=== PATIENT | male | born 1985 | race Caucasian/White ===

== ENCOUNTER 2022-08-14 17:35 | Emergency (ER) | payer MEDICAID ==
[~2022-08-14] VITALS: Ht 175.3 cm; Wt 130.0 kg
[~2022-08-14 17:35] MED LIST: DOCU-28 PO; HYDR-4353 PO; NAPR-56 PO; ONDA8TAB9 PO; PRED10TA PO; RANI-648 PO
[2022-08-14 17:48] VITALS: BP 136/67
[2022-08-14] MEDS ORDERED: MUPI22OI30 TOP (19:43)
[2022-08-14] MEDS ORDERED: SULF1TAB49 PO (19:43)
[2022-08-14] MEDS ORDERED: sulfamethoxazole/trimethoprim DS (800/160mg) tablet PO ONE (19:45)
== END 2022-08-14 20:06 | disposition home or self-care (01) ==
LOC: ER 17:35
DX: L02.211 Cutaneous abscess of abdominal wall (principal); G89.29 Other chronic pain; M54.9 Dorsalgia, unspecified; Z79.899 Other long term (current) drug therapy
CPT/HCPCS: 99283; A6449

== ENCOUNTER 2024-01-18 22:10 | Emergency (ER) | payer MEDICAID ==
[~2024-01-18] VITALS: Ht 177.8 cm; Wt 125.0 kg
[2024-01-18] MEDS ORDERED: TRIA15CR61 TOP (22:21)
[2024-01-18] MEDS ORDERED: PRED20TA PO (22:21)
[2024-01-18] MEDS ORDERED: DIPH25TA62 PO (22:21)
[2024-01-18] MEDS: dexamethasone sod phosphate 10mg/ml inj IM STA (23:03)
[2024-01-18] MEDS: diphenhydrAMINE 50 mg/ml inj IM ONE (23:04)
[2024-01-19 00:27] VITALS: BP 136/68; PULSE 60; RESP 16; TEMP 98.6; O2SAT 96
== END 2024-01-19 00:29 | disposition home or self-care (01) ==
LOC: ER 22:11
DX: L23.7 Allergic contact dermatitis due to plants, except food (principal)
CPT/HCPCS: 96372; 99284; J1100; J1200

== ENCOUNTER 2024-09-14 15:32 | Emergency (ER) | payer MEDICAID ==
[~2024-09-14] VITALS: Ht 177.8 cm; Wt 134.7 kg
[~2024-09-14 15:32] MED LIST changes: +DIPH25TA62 PO
[2024-09-14 16:19] LABS: BASOPHILS # (AUTO) 0.1 X10'3 (0-0.2); BASOPHILS % (AUTO) 0.4 % (0-1); EOSINOPHILS # (AUTO) 0.8 X10'3 (0-0.9); EOSINOPHILS % (AUTO) 5.1 % (0-6); HEMATOCRIT 48.8 % (42.0-52.0); HEMOGLOBIN 16.9 g/dl (14.0-17.9); LYMPHOCYTES # (AUTO) 5.8 X10'3 (1.1-4.8); LYMPHOCYTES % (AUTO) 37.6 % (21-51); MEAN CORPUSCULAR HEMOGLOBIN 30.8 PG (27.0-31.0); MEAN CORPUSCULAR HGB CONC 34.5 g/dL (33.0-36.5); MEAN CORPUSCULAR VOLUME 89.2 FL (78-98); MEAN PLATELET VOLUME 8.7 FL (7.4-10.4); MONOCYTES # (AUTO) 1.7 X10'3 (0-0.9); MONOCYTES % (AUTO) 11.3 % (2-12); NEUTROPHILS # (AUTO) 7.1 X10'3 (1.8-7.7); NEUTROPHILS % (AUTO) 45.6 % (42-75); PLATELET COUNT 389 X10'3 (140-440); RED BLOOD COUNT 5.48 X10'6 (4.70-6.10); RED CELL DISTRIBUTION WIDTH 13.3 % (11.5-14.5); WHITE BLOOD COUNT 15.5 X10'3 (4.5-11.0)
[2024-09-14 16:40] LABS: ALANINE AMINOTRANSFERASE 179 U/L (12-78); ALBUMIN/GLOBULIN RATIO 0.8 (1.1-1.5); ALKALINE PHOSPHATASE 130 IU/L (46-116); AMYLASE 32 U/L (25-115); ANION GAP 5 (8-16); ASPARTATE AMINO TRANSFERASE 81 U/L (10-37); BILIRUBIN,TOTAL 1.1 MG/DL (0.1-1.0); BLOOD UREA NITROGEN 12 MG/DL (7-18); BUN/CREATININE RATIO 12.9 (10.0-20.0); CALCIUM 9.2 MG/DL (8.5-10.1); CHLORIDE 98 MMOL/L (99-107); CREATININE 0.93 MG/DL (0.60-1.10); GLUCOSE 331 MG/DL (70-104); LIPASE 93 U/L (16-77); SODIUM 136 MMOL/L (135-145); TOTAL CARBON DIOXIDE 32.8 MMOL/L (24-32); TOTAL PROTEIN 8.8 G/DL (6.4-8.2); eCRCL 111 ML/MIN; eGFR > 90 ML/MIN
[2024-09-14 16:42] LABS: POTASSIUM 4.1 MMOL/L (3.5-5.1)
[2024-09-14 17:05] LABS: BILIRUBIN,URINE NEGATIVE (Neg); CLARITY,URINE CLEAR (Clear); COLOR,URINE YELLOW (Yellow); GLUCOSE, URINE >=1000 mg/dl (Neg); KETONES,URINE NEGATIVE (Neg); LEUKOCYTE ESTERASE ,URINE NEGATIVE (Neg); NITRITES, URINE NEGATIVE (Neg); OCCULT BLOOD,URINE SMALL (Neg); PH,URINE 5.5 (4.8-8.0); PROTEIN,URINE NEGATIVE (Neg); UA COLLECTION TYPE NON-SPECIFIED; UROBILINOGEN,URINE 0.2 E.U/dL (0.2-1.0)
[2024-09-14 17:13] LABS: BACTERIA,URINE NONE SEEN /HPF (Neg); RBC,URINE 0-2 /HPF (0-2); WBC,URINE NONE SEEN /HPF (0-4)
[2024-09-14 17:14] LABS: SQUAMOUS EPITHELIAL CELL,UR NONE SEEN /LPF (FEW)
[2024-09-14] MEDS: ketorolac trometh 15mg/ml vial 15 MG/ML ML IM ONE (18:20)
[2024-09-14] MEDS ORDERED: iohexol 300mg/ml 100ml inj. ONE (18:48)
[2024-09-14] MEDS ORDERED: FLO0.4C PO (21:24)
[2024-09-14] MEDS ORDERED: HYDR-3965 PO (21:44)
[2024-09-14 21:56] VITALS: BP 140/80; PULSE 70; RESP 16; TEMP 98.6; O2SAT 99
== END 2024-09-14 21:57 | disposition home or self-care (01) ==
LOC: ER 15:32
DX: R10.10 Upper abdominal pain, unspecified (principal); N20.0 Calculus of kidney
CPT/HCPCS: 36415; 74177; 76700; 80053; 81001; 82150; 83690; 85025; 96372; 99285; J1885; Q9967

== ENCOUNTER 2024-11-02 02:10 | Emergency (ER) | payer MEDICAID ==
[~2024-11-02] VITALS: Ht 177.8 cm; Wt 133.6 kg
[2024-11-02] MEDS: ondansetron/PF 4mg/2ml inj IV ONE ×2 (02:30→02:32)
[2024-11-02] MEDS: morphine 4 MG/ML inj SYRINge IV ONE ×2 (02:30→02:32)
[2024-11-02 02:44] LABS: BASOPHILS # (AUTO) 0.2 X10'3 (0-0.2); EOSINOPHILS # (AUTO) 0.9 X10'3 (0-0.9); MONOCYTES # (AUTO) 2.1 X10'3 (0-0.9)
[2024-11-02 02:46] LABS: BASOPHILS % (AUTO) 1.1 % (0-1); EOSINOPHILS % (AUTO) 5.1 % (0-6); HEMATOCRIT 46.3 % (42.0-52.0); HEMOGLOBIN 15.3 g/dl (14.0-17.9); LYMPHOCYTES # (AUTO) 9.5 X10'3 (1.1-4.8); LYMPHOCYTES % (AUTO) 54.3 % (21-51); MEAN CORPUSCULAR HEMOGLOBIN 29.3 PG (27.0-31.0); MEAN CORPUSCULAR VOLUME 88.7 FL (78-98); MEAN PLATELET VOLUME 9.5 FL (7.4-10.4); MONOCYTES % (AUTO) 12.2 % (2-12); NEUTROPHILS # (AUTO) 4.8 X10'3 (1.8-7.7); NEUTROPHILS % (AUTO) 27.3 % (42-75); PLATELET COUNT 329 X10'3 (140-440); RED BLOOD COUNT 5.22 X10'6 (4.70-6.10); RED CELL DISTRIBUTION WIDTH 13.7 % (11.5-14.5); WHITE BLOOD COUNT 17.5 X10'3 (4.5-11.0)
[2024-11-02] MEDS ORDERED: iohexol 300mg/ml 100ml inj. ONE (02:50)
[2024-11-02 02:55] LABS: ALANINE AMINOTRANSFERASE 185 U/L (12-78); ALBUMIN 3.4 G/DL (3.4-5.0); ALBUMIN/GLOBULIN RATIO 0.8 (1.1-1.5); ALKALINE PHOSPHATASE 147 IU/L (46-116); ANION GAP 9 (8-16); ASPARTATE AMINO TRANSFERASE 74 U/L (10-37); BILIRUBIN,TOTAL 0.6 MG/DL (0.1-1.0); BLOOD UREA NITROGEN 9 MG/DL (7-18); BUN/CREATININE RATIO 10.6 (10.0-20.0); CALCIUM 8.3 MG/DL (8.5-10.1); CHLORIDE 104 MMOL/L (99-107); CREATININE 0.85 MG/DL (0.60-1.10); GLUCOSE 326 MG/DL (70-104); POTASSIUM 3.8 MMOL/L (3.5-5.1); SODIUM 138 MMOL/L (135-145); TOTAL CARBON DIOXIDE 24.9 MMOL/L (24-32); TOTAL PROTEIN 7.6 G/DL (6.4-8.2); eCRCL 122 ML/MIN; eGFR > 90 ML/MIN
[2024-11-02 02:59] LABS: LIPASE 74 U/L (16-77); MAGNESIUM 1.9 MG/DL (1.5-2.4)
[2024-11-02] MEDS: ketorolac trometh 15mg/ml vial 15 MG/ML ML IV ONE (03:09)
[2024-11-02 03:32] LABS: PLATELET ESTIMATE NORMAL; TOTAL CELLS COUNTED 100
[2024-11-02] MEDS ORDERED: NAPR-56 PO (03:59)
[2024-11-02] MEDS ORDERED: FLO0.4C PO (03:59)
[2024-11-02 05:18] LABS: BILIRUBIN,URINE NEGATIVE (Neg); CLARITY,URINE CLEAR (Clear); COLOR,URINE YELLOW (Yellow); GLUCOSE, URINE >=1000 mg/dl (Neg); KETONES,URINE TRACE mg/dl (Neg); LEUKOCYTE ESTERASE ,URINE NEGATIVE (Neg); NITRITES, URINE NEGATIVE (Neg); OCCULT BLOOD,URINE TRACE-INTACT (Neg); PROTEIN,URINE NEGATIVE (Neg); UROBILINOGEN,URINE 0.2 E.U/dL (0.2-1.0)
[2024-11-02 05:23] LABS: UA COLLECTION TYPE URINAL
[2024-11-02 05:25] LABS: BACTERIA,URINE NONE SEEN /HPF (Neg); SQUAMOUS EPITHELIAL CELL,UR NONE SEEN /LPF (FEW); WBC,URINE 0-4 /HPF (0-4)
[2024-11-02] MEDS: HYDROcodone/acetaminophen 5mg/325mg tablet PO ONE (05:51)
[2024-11-02 05:55] VITALS: BP 169/76; PULSE 77; RESP 16; TEMP 97.9; O2SAT 95
[2024-11-03] MEDS ORDERED: ONDA-245 PO (01:12)
[2024-11-03] MEDS ORDERED: ACET-2615 PO (01:12)
== END 2024-11-02 05:58 | disposition home or self-care (01) ==
LOC: ER 02:11
DX: N23 Unspecified renal colic (principal); G89.29 Other chronic pain; M54.9 Dorsalgia, unspecified; Z87.442 Personal history of urinary calculi
CPT/HCPCS: 36415; 74177; 76700; 80053; 81001; 83690; 83735; 84484; 85007; 85025; 96374; 96375; 99285; J1885; J2270; J2405; Q9967

== ENCOUNTER 2024-11-02 20:43 | Emergency (ER) | payer MEDICAID ==
[~2024-11-02] VITALS: Ht 177.8 cm; Wt 129.6 kg
[~2024-11-02 20:43] MED LIST changes: +FLO0.4C PO
[2024-11-02 21:06] VITALS: TEMP 97.5
[2024-11-03] MEDS: ketorolac trometh 15mg/ml vial 15 MG/ML ML IM ONE (01:10)
[2024-11-03] MEDS: acetaminophen 325mg tablet PO ONE (01:10)
[2024-11-03] MEDS: ondansetron 4mg rapidly disintigrating tab PO ONE (01:10)
[2024-11-03] MEDS ORDERED: ACET-2615 PO (01:12)
[2024-11-03] MEDS ORDERED: ONDA-245 PO (01:12)
[2024-11-03 01:19] VITALS: BP 151/79; PULSE 60; RESP 16; O2SAT 97
== END 2024-11-03 01:26 | disposition home or self-care (01) ==
LOC: ER 20:43
DX: N20.0 Calculus of kidney (principal); Z79.1 Long term (current) use of non-steroidal anti-inflammatories (NSAID)
CPT/HCPCS: 96372; 99283; J1885